=== PATIENT | female | born 1990 | race Caucasian/White ===

== ENCOUNTER 2017-07-27 16:16 | Emergency (ER) | payer SELFPAY ==
[~2017-07-27] VITALS: Ht 157.5 cm; Wt 49.9 kg
--- NOTE | 2017-07-27 16:47 | NUR ---
[facility]RA FROM STRE[address]-- PER REPORT PATIENT WAS FOUBD RUNNING THROUGH STREETS NAKED/CONFUSED, CAN ONLY SAY NAME IS "PINKY LOAKES", PATIEN IS AWAKE AT THIS TIME, REFUSING TO TALK NOR FOLLOW COMMAND. NO SOB NOTED. SKIN IS WARM TO TOUCH AND NON DIAPHORETIC. AFEBRILE. VSS
[2017-07-27 16:59] LABS: BASOPHILS % (AUTO) 0.2 % (0.0-2.0); HEMATOCRIT 36 % (33-45); HEMOGLOBIN 12.3 g/dL (11.5-14.8); LYMPHOCYTES # (AUTO) 1.5 /CMM (0.8-4.8); LYMPHOCYTES % (AUTO) 16.6 % (20.0-44.0); MEAN CORPUSCULAR HGB CONC 34 g/dl (31.0-36.0); MEAN CORPUSCULAR VOLUME 88 fL (82-100); MONOCYTES # (AUTO) 0.6 /CMM (0.1-1.30); MONOCYTES % (AUTO) 6.2 % (2.0-12.0); NEUTROPHILS # (AUTO) 6.9 /CMM (1.8-8.9); PLATELET COUNT (AUTO) 292 /CMM (150-450); RDW COEFFICIENT OF VARIATION 13.4 (11.5-15.0); WHITE BLOOD COUNT (AUTO) 9.2 K/uL (4.3-11.0)
[2017-07-27 17:09] LABS: CALCIUM, SERUM 8.8 mg/dL (8.5-10.1); CARBON DIOXIDE 25 mmol/L (21-32); CHLORIDE 104 mmol/L (98-107); CREATININE 0.7 mg/dL (0.6-1.3); GLUCOSE 110 mg/dL (74-106); POTASSIUM 3.4 mmol/L (3.5-5.1); SODIUM SERUM 139 mmol/L (136-145); UREA NITROGEN, BLOOD 12 mg/dL (7-18)
[2017-07-27 17:15] LABS: ALANINE AMINOTRANSFERASE 38 U/L (12-78); ALBUMIN 4.1 g/dL (3.4-5.0); ALCOHOL, BLOOD < 3 mg/dL (0-0); ALKALINE PHOSPHATASE 84 U/L (46-116); ASPARTATE AMINOTRANSFERASE 18 U/L (15-37); BILIRUBIN,DIRECT 0.1 mg/dL (0.0-0.2); BILIRUBIN,TOTAL 0.5 mg/dL (0.2-1.0); TOTAL PROTEIN, SERUM 7.5 g/dL (6.4-8.2)
[2017-07-27 17:23] LABS: ACETAMINOPHEN 0 ug/ml (10-30); SALICYLATE 2.5 mg/dL (2.8-20.0)
[2017-07-27] MEDS ORDERED: OLANZAPINE 5 MG TABLET PO ONE (18:00)
[2017-07-27] MEDS ORDERED: OLANZAPINE 5 MG TABLET ONE (18:06)
[2017-07-27 18:14] LABS: APPEARANCE,URINE Clear (CLEAR); BILIRUBIN,URINE Negative (NEGATIVE); BLOOD, URINE Negative Ery/uL (NEGATIVE); COLOR,URINE Yellow (YELLOW); KETONES,URINE Negative (NEGATIVE); LEUKOCYTE ESTERASE ,URINE Negative (NEGATIVE); NITRITE, URINE Negative (NEGATIVE); PH,URINE 8.5 (5.0-8.0); PROTEIN,URINE Negative (NEGATIVE); UGLUCOSE Negative (NEGATIVE); UROBILINOGEN,URINE 0.2 EU/dL (0.2)
--- NOTE | 2017-07-27 19:13 | NUR ---
RECEIVED REPORT FROM KRISTIE BLAKELY FOR GEM.
--- NOTE | 2017-07-28 05:15 | NUR ---
REFER TO PAPER CHART PRIOR TO THIS TIME D/T MEDITECH DOWN TIME.
--- NOTE | 2017-07-28 05:21 | NUR ---
pt a/o x 3 . Pt denies SI/HI. Pt states name is Marii Gibbons. 4--91
--- NOTE | 2017-07-28 06:22 | NUR ---
Patient discharged to home in stable condition. Written and verbal after care instructions given. Patient verbalizes understanding of instruction. PT REFUSED TO SIGN D/C INSTRUCTIONS. risk and benefits explained x3. pt states " i dont want to" ambulatory with a steady gait. pt instructed pt not to drive. pt verbalize understanding.
[2017-07-28 06:24] VITALS: BP 103/54
== END 2017-07-28 06:25 | disposition home or self-care (01) ==
LOC: ER 16:17 → EDBD 16:17 → ER 07-28 06:25
DX: F15.159 Other stimulant abuse with stimulant-induced psychotic disorder, unspecified (principal)
CPT/HCPCS: 36415; 80048; 80076; 80305; 80329; 81001; 84703 ×2; 85025; 99284; A4606; G0480 ×2; Z7610; 81000-TC